=== PATIENT | male | born 1965 | race Caucasian/White ===

== ENCOUNTER → 2018-03-13 | Outpatient (CLI) | payer OTHER | LOC: CIMAGING 14:52 | PROVIDERS: ATTEND Family Medicine | DX: S92.535A Nondisplaced fracture of distal phalanx of left lesser toe(s), initial encounter for closed fracture (principal) | CPT/HCPCS: 73660-PO ==

== ENCOUNTER 2018-06-01 22:00 | Emergency (ER) | payer OTHER ==
[2018-06-01] MEDS ORDERED: IBUPROFEN 600 MG TAB PO ONE (22:06)
[2018-06-01 22:16] VITALS: BP 139/92
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
== END 2018-06-01 22:38 | disposition home or self-care (01) ==
LOC: CED 22:00
DX: S69.92XA Unspecified injury of left wrist, hand and finger(s), initial encounter (principal); W50.0XXA Accidental hit or strike by another person, initial encounter; Y93.75 Activity, martial arts
CPT/HCPCS: 73130-PO

== ENCOUNTER → 2018-06-05 | Outpatient (CLI) | payer OTHER | LOC: CIMAGING 16:40 | PROVIDERS: ATTEND Family Medicine | DX: S92.535 Nondisplaced fracture of distal phalanx of left lesser toe(s) (principal) | CPT/HCPCS: 73660-PO ==